=== PATIENT | female | born 1985 | race African-American/Black ===

== ENCOUNTER 2023-12-30 10:13 | Outpatient (REF) | payer OTHER, SELFPAY ==
--- NOTE | ~2023-12-30 | US_ITS ---
EXAMINATION: US PELVIS CLINICAL INFORMATION: Pelvic pain, assess IUD position, last menstrual period 2 weeks ago. COMPARISON: None available. TECHNIQUE: Ultrasound of the pelvis is performed using both transabdominal and transvaginal transducers along with Doppler. Transvaginal imaging is performed due to inadequate visualization transabdominally. Limited visualization due to large uterine fibroid and bowel gas. FINDINGS: The uterus measures 7.7 x 3.8 x 4.3 cm. Large 8.3 x 6.8 x 9.2 cm uterine fibroid limits visualization of pelvic structures and is difficult to fully characterize due to bowel gas. IUD in place within the endometrial cavity. Visualization of the endometrium is limited due to shadowing from the IUD, but imaged portion of the endometrium demonstrates thickness of approximately 2 mm. Small amount of free fluid. Right ovary poorly visualized. Left ovary measures 2.0 x 1.6 x 2.8 cm and is unremarkable. US/US pelvic and transvaginal IMPRESSION: 1. Large 9.2 cm uterine fibroid. 2. IUD in place within the endometrial cavity. 3. Right ovary poorly visualized. 4. Small amount of free fluid.
== END 2023-12-30 10:14 | disposition home or self-care (01) ==
LOC: HO.UMASIMG 10:13
PROVIDERS: Visit Provider Family Medicine
DX: R10.2 Pelvic and perineal pain (principal)
CPT/HCPCS: 76830; 76856